=== PATIENT | female | born 1955 | race Caucasian/White ===

== ENCOUNTER 2016-10-04 11:09 | Outpatient (CLI) | payer OTHER ==
--- NOTE | 2016-10-04 12:52 | DIAGNOSTIC IMAGING REPORT ---
PROCEDURE: US ART LOW EXT WITH MARELY-RIGHT INDICATION: ULCER OF RT FOOT TECHNIQUE: Color Doppler duplex imaging of the lower extremity arterial system was performed bilaterally. Pre and post exercise ABIs were acquired. COMPARISON: None. FINDINGS: High-grade stenosis greater than 70-80% in the right dorsalis pedis artery. RIGHT LOWER EXTREMITY: ABIs: The patient declined due to ulcers on the second and third toes. VESSELS/ WAVEFORMS: Triphasic RIGHT LOWER EXTREMITY PEAK SYSTOLIC VELOCITIES: External iliac: 149 cm/second. Common femoral artery: 132 cm/second. Profunda femoral artery: 128 cm/second. Proximal superficial femoral artery: 135 cm/second. Mid superficial femoral artery: 104 cm/second. Distal superficial femoral artery: 113 cm/second. Popliteal artery: 65 cm/second. Proximal posterior tibial artery: 56 cm/second. Proximal anterior tibial artery: 51 cm/second. Distal posterior tibial artery: 133 cm/second. Dorsalis pedis artery: 296 cm/second. High-grade stenosis. IMPRESSION: 1. High-grade stenosis greater than 70-80% in the right dorsalis pedis artery.
== END 2016-10-04 23:00 ==
LOC: US SRH 11:09
DX: I70.201 Unspecified atherosclerosis of native arteries of extremities, right leg (principal)

== ENCOUNTER 2017-01-02 11:20 | Outpatient (CLI) | payer OTHER ==
--- NOTE | 2017-01-02 13:18 | DIAGNOSTIC IMAGING REPORT ---
PROCEDURE: US BILATERAL CAROTID DOPPLER INDICATION: PAD TECHNIQUE: Color Doppler duplex imaging of the carotid and vertebral vessels. COMPARISON: None. FINDINGS: Tortuous ICA's bilaterally. Right common carotid artery peak systolic velocity 100 cm/second. Right internal carotid artery peak systolic velocity 227 cm/second. Right external carotid artery peak systolic velocity 136 cm/second. Right vejaovfe-dl-xvmcwj carotid artery ratio 2.3 Right vertebral artery peak systolic velocity 66 cm/second antegrade. Left common carotid artery peak systolic velocity 77 cm/second. Left internal carotid artery peak systolic velocity 198 cm/second. Left external carotid artery peak systolic velocity 101 cm/second. Left obcirwxj-wf-upftok carotid artery ratio 2.6 Left vertebral artery peak systolic velocity 81 cm/second antegrade. IMPRESSION: 1. Bilateral ICA 50-69% stenosis. Velocity criteria are extrapolated from diameter data as defined by the Society of Radiologists in Ultrasound Consensus Conference, Radiology 2003; 229; 340-346.
--- NOTE | 2017-01-02 13:18 | DIAGNOSTIC IMAGING REPORT ---
PROCEDURE: US BILATERAL CAROTID DOPPLER INDICATION: PAD TECHNIQUE: Color Doppler duplex imaging of the carotid and vertebral vessels. COMPARISON: None. FINDINGS: Tortuous ICA's bilaterally. Right common carotid artery peak systolic velocity 100 cm/second. Right internal carotid artery peak systolic velocity 227 cm/second. Right external carotid artery peak systolic velocity 136 cm/second. Right rrjjmmxu-nq-mctdno carotid artery ratio 2.3 Right vertebral artery peak systolic velocity 66 cm/second antegrade. Left common carotid artery peak systolic velocity 77 cm/second. Left internal carotid artery peak systolic velocity 198 cm/second. Left external carotid artery peak systolic velocity 101 cm/second. Left ehokmhcc-wr-dsqljo carotid artery ratio 2.6 Left vertebral artery peak systolic velocity 81 cm/second antegrade. IMPRESSION: 1. Bilateral ICA 50-69% stenosis. Velocity criteria are extrapolated from diameter data as defined by the Society of Radiologists in Ultrasound Consensus Conference, Radiology 2003; 229; 340-346.
--- NOTE | 2017-01-03 16:43 | DIAGNOSTIC IMAGING REPORT ---
PROCEDURE: NM CARDIAC STRESS TEST INDICATION: Peripheral arterial disease TECHNIQUE: Please see separately dictated stress test report for details of that portion of the study. This is a pharmacologic study. 10.8 mCi technetium 99m labeled sestamibi used for rest imaging and 28 mCi for stress imaging. COMPARISON: None FINDINGS: SPECT imaging showed extracardiac uptake interfering with interpretation of the inferior wall. Regardless, perfusion overall appears normal. Some stress score is two. T.i.d. score is 1.11. No significant transient ischemic dilatation. Gated SPECT imaging shows ejection fraction 61%, end-diastolic volume 111 ml, end-systolic volume 44 ml and normal wall thickening and wall motion. IMPRESSION: Technically difficult study with suboptimal visualization of the inferior wall. No infarct or ischemia Normal left ventricular size, ejection fraction wall motion and wall thickening. Low risk study.
== END 2017-01-02 23:00 ==
LOC: US SRH 11:20 → NM SRH 12:30 → US SRH 23:00
PROC: 4A02XM4 Measurement of Cardiac Total Activity, External Approach (ICD-10-PCS; principal; 2017-01-02)
PROC: 3E073KZ Introduction of Other Diagnostic Substance into Coronary Artery, Percutaneous Approach (ICD-10-PCS; principal; 2017-01-02)
DX: I73.9 Peripheral vascular disease, unspecified (principal); I65.23 Occlusion and stenosis of bilateral carotid arteries